=== PATIENT | female | born 2000 | race Caucasian/White ===

== ENCOUNTER → 2021-05-24 | Outpatient (CLI) | payer BC ==
[~2021-05-24] MED LIST: ZOFRAN ODT 4 MG4 MG PO; ZOFRAN4 MG PO
[2021-05-24 09:08] LABS: HEMOGLOBIN 13.3 gm/dl (12.3-15.3); RED BLOOD COUNT 4.61 M/UL (4.00-5.10); WHITE BLOOD COUNT 7.9 K/UL (4.5-11.0)
[2021-05-24 10:02] LABS: BUN/CREATININE RATIO 21 (0-10)
== END ==
LOC: LAB 08:47
PROVIDERS: Family Medicine
DX: E78.5 Hyperlipidemia, unspecified (principal); E53.8 Deficiency of other specified B group vitamins; E55.9 Vitamin D deficiency, unspecified
CPT/HCPCS: 80053; 80061; 82607; 84443; 85027

== ENCOUNTER → 2021-05-25 | Outpatient (CLI) | payer BC | LOC: HEART 5 07:59 | DX: R00.0 Tachycardia, unspecified (principal) ==